=== PATIENT | female | born 1925 | race Caucasian/White ===

== ENCOUNTER 2016-11-22 13:56 | Inpatient (IN) | payer MEDICARE ==
[~2016-11-22] VITALS: Ht 167.6 cm; Wt 70.1 kg
[2016-11-22 13:56] VITALS: BP 112/89; PULSE 112; RESP 14; O2SAT 100
--- NOTE | 2016-11-22 14:26 | ED.REPORT ---
HPI-Chest Pain 40 and Over Date of Service Nov 22, 2016 ED Provider: Dr. Crum The pt is an 89 y/o female with a hx of HTN who presents to the ED from urgent care due to A-fib with RVR as noted at the clinic today. The pt initially went to urgent care complaining of right knee pain. The pt states she was beginning to feel tired while grocery shopping when she suddenly experienced leg weakness and slumped to the floor, landing on her right knee. As per the pt's friend, she had glassy eyes and did not respond to her questions while sitting on the floor. Nursing Notes Stated Complaint: RAPID HEART RATE Nursing Notes Reviewed: Yes Allergies: Coded Allergies: No Known Allergies (Unverified , 11/22/16) General Time Seen by MD: 14:26 Chief Complaint Other (A-fib with RVR) Hx Obtained From: Patient Arrived By: Ambulance Sudden in Onset?: Yes Onset Occurred: Just prior to arrival Symptom Duration: Since onset Quality: Painful (right knee) Radiation: : Does not radiate Severity: Current: Severe Severity: Maximum: Severe Recent Healthcare: No recent doctor visit Past Medical History Past Medical History Reports: Hypertension Past Surgical History Lives in [place] Smoking History Unknown if Ever Smoker Social History Other Social History: Good social support Ambulatory Status Independent Review of Systems Reports: A-fib with RVR Reports: unable to answer questions for a few minutes Reports: glassy eyes Constitutional: Reports: Fatigue Musculoskeletal: Reports: Joint pain (right knee pain) Complete sys rev & neg: except as marked. Physical Exam Initial Vital Signs Vital Signs (First) Date Time Temp Pulse Resp B/P Pulse Ox O2 Delivery O2 Flow Rate FiO2 11/22/16 13:56 35.9 112 14 112/89 100 Room Air Initial VS: Reviewed Head / Eyes: Atraumatic, Normocephalic Neck: Supple, Non-tender, Full range of motion Skin: Warm, Dry, No cyanosis Neurologic: Alert, Oriented, Nonfocal General/Constitutional: Awake, Alert, No acute distress, Well appearing, Cooperative Respiratory / Chest: Atraumatic, Breath sounds NL, Breath sounds = bilat, No respiratory distress, No rales, No rhonchi, No wheezing Cardiovascular: Heart rate NL, Heart sounds NL, No gallop, No murmurs, No rubs Heart Rate / Rhythm: Positive: Irreg irregular rhythm Abdomen: Atraumatic, Soft, Non-tender, No guarding, No rebound Lower Extremity / Pelvis / MS: Atraumatic, Full range of motion, No deformity, Neurologic intact, Vascular intact Extreme pain with minimal movement of right knee. Upper Extremity / MS: Atraumatic, Full range of motion, No swelling, Non-tender , No erythema, No deformity, Neurologic intact, Vascular intact Interpretation & Diagnostics Lab Results Interpretation Result Diagram: 11/22/16 1550 11/22/16 1550 Test 11/22/16 15:50 11/22/16 17:33 White Blood Count 13.3th/mm3 (3.8-10.1) Red Blood Count 4.54mil/mm3 (3.90-5.20) Hemoglobin 14.1g/dL (12.0-15.6) Hematocrit 41.3% (35.0-46.0) Mean Corpuscular Volume 91.0fL (81-100) Mean Corpuscular Hemoglobin 31.1pg (27.0-35.0) Mean Corpuscular Hemoglobin Concent 34.1% (32.0-37.0) Red Cell Distribution Width 13.7% (12.3-15.4) Platelet Count 212bil/L (150-400) Neutrophils (%) (Auto) 84.0% (40-74) Lymphocytes (%) (Auto) 8.7% (14-46) Monocytes (%) (Auto) 6.4% (4-12) Eosinophils (%) (Auto) 0.2% (0-5) Basophils (%) (Auto) 0.2% (0-3) Sodium Level 137mEq/L (134-144) Potassium Level 4.4mEq/L (3.5-5.2) Chloride Level 97mEq/L (97-108) Carbon Dioxide Level 26mmol/L (18-29) Blood Urea Nitrogen 23mg/dL (8-27) Creatinine 0.77mg/dL (0.57-1.00) Estimat Glomerular Filtration Rate 101mL/min (>59) Glucose Level 112mg/dL (60-99) Calcium Level 9.7mg/dL (8.5-10.1) Magnesium Level 2.0mg/dL (1.6-2.6) Total Bilirubin 0.5mg/dL (0.0-1.2) Aspartate Amino Transf (AST/SGOT) 20U/L (0-50) Alanine Aminotransferase (ALT/SGPT) 13U/L (0-32) Alkaline Phosphatase 68U/L (25-165) Troponin T < 0.010ug/L (0.0-0.011) Total Protein 6.9g/dL (6.4-8.4) Albumin 4.2g/dL (3.4-5.0) Hold Edwards Top Tube Received (Received) ECG Interpretation ECG Interpretation: A-fib. Rate 108 Time: 14:09 Interpreted by: ED physician X-Ray Chest Interpretation Chest Xray Interpretation: IMPRESSION: No acute cardiopulmonary disease. Dictated by: Yamilet Kaufman M.D. on 11/22/2016 at 15:11 Approved by: Yamilet Kaufman M.D. on 11/22/2016 at 15:11 View: Portable, 1 view X-Ray Interpretation Xray Interpretation: IMPRESSION: 1. No definitive fractures. 2. Small knee joint effusion. 3. Because of severe degenerative joint disease and generalized osteopenia, subtle fractures could be missed on radiograph. If clinical symptoms persist or clinical suspicion for pathology is high, a repeat examination in 7-10 days, or advanced imaging such as CT or MRI is suggested for further evaluation. Dictated by: Yamilet Kaufman M.D. on 11/22/2016 at 15:09 Approved by: Yamilet Kaufman M.D. on 11/22/2016 at 15:11 X-Ray Ordered: Knee right Interpretation / Wet Read by: Interpret - Radiologist Re-Eval/Medical Decision Source of Hx: Old records Time of Eval: 16:59 Re-Evaluation/Progress Note: Rechecked pt. Discussed lab results, imaging results,diagnosis and plan to admit. Pt understands and agrees with the plan for admission. All questions addressed. Consultation : Referral / Consult Name: Fredy Matos MD Consulted With: Hospitalist Telegraph Lineman: Will see patient, Agrees with eval, Agrees with plan, Accepts admit Counseled Regarding: Diagnosis, Lab results, Need for admission Discharge & Departure Primary Impression: Atrial fibrillation with RVR Additional Impression: Syncope Syncope type: unspecified Qualified Code: R55 - Syncope and collapse Disposition: ADMITTED TO HOSPITAL Scribe Attestation Portions of this note were transcribed by Ngozi Velasquez. I,, personally performed the history,physical exam and medical decision-making;I reviewed and confirmed the accuracy of the information in the transcribed note. Signed by Paloma Wilson. 11/22/16 Bertrand Crum MD Nov 22, 2016 14:26 Ngozi Velasquez Nov 22, 2016 14:28
--- NOTE | 2016-11-22 15:13 | DRSVH ---
PROCEDURE: X-RAY RIGHT KNEE, THREE VIEWS ([id number]) INDICATIONS: syncope TECHNIQUE: 3 views of the knee were acquired. COMPARISON: None. FINDINGS: Bones: No fractures or dislocations. No suspicious bony lesions. There is severe myxoid degenerati on. Generalized osteopenia is noted. Soft tissues: Small joint effusion. No suspicious soft tissue calcifications. IMPRESSION: 1. No definitive fractures. 2. Small knee joint effusion. 3. Because of severe degenerative joint disease and generalized osteopenia, subtle fractures could be missed on radiograph. If clinical symptoms persist or clinical suspicion for pathology is high, a r epeat examination in 7-10 days, or advanced imaging such as CT or MRI is suggested for further evalua tion. Dictated by: Yamilet Kaufman M.D. on 11/22/2016 at 15:09 Approved by: Yamilet Kaufman M.D. on 11/22/2016 at 15:11
--- NOTE | 2016-11-22 15:14 | DRSVH ---
PROCEDURE: X-RAY CHEST ONE VIEW, PORTABLE ([id number]) INDICATIONS: syncope TECHNIQUE: One view of the chest was acquired. COMPARISON: None. FINDINGS: Surgical changes and devices: None. Lungs and pleura: No pleural effusions or pneumothorax. Lungs are clear. Mediastinum: Mediastinal contours appear normal. Heart size is normal. Bones and chest wall: No suspicious bony lesions. Overlying soft tissues appear unremarkable. IMPRESSION: No acute cardiopulmonary disease. Dictated by: Yamilet Kaufman M.D. on 11/22/2016 at 15:11 Approved by: Yamilet Kaufman M.D. on 11/22/2016 at 15:11
[2016-11-22 15:30] VITALS: BP 102/60; PULSE 103; RESP 21; O2SAT 98
[2016-11-22 16:02] LABS: BASOPHILS % (AUTO) 0.2 % (0-3); EOSINOPHILS % (AUTO) 0.2 % (0-5); MONOCYTES % (AUTO) 6.4 % (4-12); Mean Corpuscular Hemoglobin 31.1 pg (27.0-35.0); Platelet Count 212 bil/L (150-400)
[2016-11-22 16:25] VITALS: BP 113/81; PULSE 101; RESP 23; O2SAT 99
[2016-11-22 16:26] VITALS: BP 113/74; PULSE 103; RESP 21; O2SAT 99
[2016-11-22 16:29] LABS: TROPONIN T < 0.010 ug/L (0.0-0.011)
[2016-11-22] MEDS ORDERED: Ondansetron 2 mg/mL 2 mL Inj IVPUSH PRN ×2 (18:00→20:20)
[2016-11-22] MEDS ORDERED: Alum-Mag Hydrox-Simeth 30 mL Suspension PO PRN ×2 (18:00→20:20)
[2016-11-22 18:32] VITALS: BP 91/63; PULSE 103; RESP 18; O2SAT 100
[2016-11-22 18:45] LABS: APPEARANCE,URINE HAZY (CLEAR,HAZY); COLOR,URINE YELLOW (YELLOW)
[2016-11-22 18:46] LABS: OCCULT BLOOD,URINE NEGATIVE (NEGATIVE); PH,URINE 5.5 (5.0-8.0)
[2016-11-22 18:52] VITALS: BP 119/62; PULSE 67; RESP 18; O2SAT 94
--- NOTE | 2016-11-22 18:57 | NUR ---
Transfer to [facility] Patient arrived via stretcher from ED at 1845. Currently getting settled by CNA. OCAMPO, stated she's hungry and wants to eat, dinner tray in the room. Admit not yet completed, report given to oncoming JAZMYNE GARCIA.
--- NOTE | 2016-11-22 20:03 | PCM.HPMED ---
Subjective Date of Service Nov 22, 2016 Primary Provider: Admitting Physician: Elvin Jimenez MD Primary Care Physician: Eleonora Attending Physician: Elvin Jimenez MD Admit Status: From the Emergency Department Chief Complaint: syncope History of Present Illness: 89yoF with past medical history of HTN admitted after a syncopal event found to be in atrial fibrillation with RVR. Patient states that she was out shopping with her sister when she "went blank" . Her sister tried to speak to her but she wasn't responding. She caught her before she fell and gradually helped her to the floor. Medics were called and patient was transported to [facility] for further evaluation. Upon arrival EKG was completed and found that patient was in new onset atrial fibrillation. When Mrs. Gracia was lowered to the ground she hurt her right knee and endorses ongoing knee pain. XR imaging in the ED reveal no fracture. Review of Systems: complete review of systems obtained. positive as per hpi otherwise negative Allergies Coded Allergies: No Known Allergies (Unverified , 11/22/16) Home Medications Ramipril Aspirin Calcium Clobetasol topical Furosemide Amlodipine Metoprolol Tramadol Vitamin C PMH HTN Family History patient unable to recall family history Social History Occupation: retired Hx Alcohol Use: Yes (OCCASSIONALLY) Hx Substance Use: No Smoking Status: Unknown if Ever Smoker Living Arrangement: Alone (lives in [place] with stepdaughter nextdoor ) Exam Vital Signs Vital Sign - Last Date Time Temp Pulse Resp B/P Pulse Ox O2 Delivery O2 Flow Rate FiO2 11/22/16 18:52 36.4 67 18 119/62 94 Room Air Exam General: Alert, Oriented X3, Cooperative, Moderate Distress due to pain Eyes: PERRLA, Scleral Anicteric Mouth: Mouth Normal, Mucous Membranes Moist/[place] Neck: Supple, no Thyromegaly, trachea central. Chest & Lungs: Clear to auscultation & percussion, No adventitious breath sounds, no crackles, no wheeze Cardiovascular: irregularly irregular, no murmur Pulses: Radial (present and equal), Dorsalis Pedi (present and equal) Abdomen: Soft,Non-tender, Non-distended, Normoactive bowel tones. Musculoskeletal: Normal range of motion, right knee with mild edema and tenderness to palpation Extremities: 0-1+ edema, no cyanosis, no clubbing. Skin: No rashes. Warm and dry, no erythematous areas Neurological: Grossly neurologically intact, Normal Speech, Sensation Intact Lymphatic: Lymph nodes Cervical and Axillary not palpable. Lab and Diagnostics Result Diagram: 11/22/16 1550 11/22/16 1550 X-Rays, CTs and MRIs Patient Name: PABLO GRACIA MR#: [id number] Location: SED Ordering Phys: Bertrand Crum MD Date of Service: 11/22/16 1430 PROCEDURE: X-RAY CHEST ONE VIEW, PORTABLE ([id number]) INDICATIONS: syncope TECHNIQUE: One view of the chest was acquired. COMPARISON: None. FINDINGS: Surgical changes and devices: None. Lungs and pleura: No pleural effusions or pneumothorax. Lungs are clear. Mediastinum: Mediastinal contours appear normal. Heart size is normal. Bones and chest wall: No suspicious bony lesions. Overlying soft tissues appear unremarkable. IMPRESSION: No acute cardiopulmonary disease. Dictated by: Yamilet Kaufman M.D. on 11/22/2016 at 15:11 Approved by: Yamilet Kaufman M.D. on 11/22/2016 at 15:11 Patient Name: PABLO GRACIA MR#: [id number] Location: SED Ordering Phys: Bertrand Crum MD Date of Service: 11/22/16 1430 PROCEDURE: X-RAY RIGHT KNEE, THREE VIEWS ([id number]) INDICATIONS: syncope TECHNIQUE: 3 views of the knee were acquired. COMPARISON: None. FINDINGS: Bones: No fractures or dislocations. No suspicious bony lesions. 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 Generalized osteopenia is noted. Soft tissues: Small joint effusion. No suspicious soft tissue calcifications. IMPRESSION: 1. No definitive fractures. 2. Small knee joint effusion. 3. Because of severe degenerative joint disease and generalized osteopenia, subtle fractures could be missed on radiograph. If clinical symptoms persist or clinical suspicion for pathology is high, a repeat examination in 7-10 days, or advanced imaging such as CT or MRI is suggested for further evaluation. Dictated by: Yamilet Kaufman M.D. on 11/22/2016 at 15:09 Approved by: Yamilet Kaufman M.D. on 11/22/2016 at 15:11 Assessment & Plan 89yoF with past medical history of HTN admitted after a syncopal event found to be in atrial fibrillation with RVR. Syncope, acute, POA -most likely secondary to atrial fibrillation with RVR -patient improved following admission however remains in atrial fibrillation HR 60-100 New onset atrial fibrillation, acute, POA -no past history of cardiac disease -history of HTN -will continue home HTN medications including metoprolol -ECHO ordred for am -AM team to discuss the risk benefits of anticoagulation in a 89yo with difficulties ambulating and fall risk Knee pain, acute, POA -2/2 syncopal event -XR to acute fracture however osteoarthritis noted -continue home tramadol -PT in am HTN, chronic, POA -continue home medications including LORELEI, amlodipine, metoprolol, and furosemide Pain Evaluation: Adequate Pain Control GI Prophylaxis: Not indicated VTE Prophylaxis: Sub-Q Heparin (Unfractionated) Resuscitation Status: CPR: Attempt Resuscitation Natalie Brewster DO Nov 22, 2016 20:03
[2016-11-22] MEDS ORDERED: Polyethylene Glycol (PEG) 17 Gm Powder PO PRN (20:20)
[2016-11-23] VITALS (8 sets, daily range): BP systolic 97–112; BP diastolic 62–73; PULSE 67–110; RESP 18–21; O2SAT 98–99
--- NOTE | 2016-11-23 06:42 | NUR ---
Admit/Cardiac/Pain Patient remained bedrest through night to avoid any more syncopal episodes. Currently Afib 90s-110s. C/o R leg pain, xray of knee done, patient c/o leg pain distal to knee. Tylenol given x2 doses. Plan for P.T. eval this AM. Patient willing to "go somewhere" to get better if she can't go home independently when discharged. Discuss anticoagulation vs risk of bleeding for patient.
[2016-11-23] MEDS: MeTOProlol XL 50 mg ER24 Tablet PO SCH (08:12)
[2016-11-23] MEDS: Heparin 5,000 Unit/mL Inj SUBQ SCH ×2 (08:12→15:57)
[2016-11-23] MEDS ORDERED: CALC600T12 PO (09:31)
[2016-11-23] MEDS ORDERED: ASPI-973 PO (09:31)
[2016-11-23] MEDS ORDERED: RAMI5CAP19 PO (09:31)
[2016-11-23] MEDS ORDERED: NAPR220C11 PO (09:33)
[2016-11-23] MEDS ORDERED: FURO-128 PO (10:13)
[2016-11-23] MEDS ORDERED: AMLO10TA3 PO (10:13)
[2016-11-23] MEDS ORDERED: VIT1CAPS10 PO (10:13)
[2016-11-23] MEDS ORDERED: TRAM50TA2 PO (10:16)
[2016-11-23] MEDS ORDERED: METO-369 PO (10:16)
[2016-11-23] MEDS ORDERED: ASCO-294 PO (10:16)
[2016-11-23] MEDS ORDERED: POTA10CA42 PO (10:16)
[2016-11-23] MEDS ORDERED: CHOL200047 PO (10:18)
[2016-11-23] MEDS ORDERED: LUTE20TA PO (10:18)
[2016-11-23] MEDS ORDERED: ZINC50TA4 PO (10:18)
--- NOTE | 2016-11-23 11:35 | NUR ---
Social Work-initial assessment/bedside rounds: Data:See initial assessment. Pt is a 89 y/o female who was admitted on 11/22/16 for AFIB per H&P. Pt's insurance is [facility] and PCP is Dr. Leonardo in [place]. EMR Reviewed. Pt's readmission score is 2. SW met with pt and sister Diana at bedside, SW role explained. Pt is alert and oriented x3. Pt resides at home alone where she remains independent with ADLS. Pt drives occasionally and does use a cane. Pt has no HH or SNF history. Pt has no terminal carman care insurance or VA benefits. SW discussed DPOA/ advanced directive, pt has completed this, SW encouraged a copy to be brought in. SW provided pt with a discharge planning checklist and encouraged with any questions, phone number provided on white board in room. PT saw pt and is recommending SNF, no MD orders at this time. SW to follow up with pt and sister when order received. SW will continue to follow. Assessment:Pt who is independent at baseline. Plan:PT saw pt and is recommending SNF, no MD orders at this time. SW to follow up with pt and sister when order received. SW will continue to follow. MAGDY Holt Addendum: 11/23/16 at 1138 by DARCY HOLLOWAY Amended: Links added. Addendum: 11/23/16 at 1634 by DARCY TYSON PT's family brought in information regarding supplemental insurance, which MARGARET faxed to admitting. DPOA/advanced directive paperwork brought in which MARGARET placed a copy of in the chart. Daughter Abbie John contact information [phone]. MAGDY Holt
--- NOTE | 2016-11-23 13:41 | DRSVH ---
PROCEDURE: CT BRAIN WITHOUT CONTRAST ([id number]) INDICATIONS: 89-year-old woman with syncope. TECHNIQUE: Noncontrast 4.5 mm thick angled axial sections acquired from the foramen magnum to the vertex, with c oronal reformats. COMPARISON: None. FINDINGS: Image quality: Excellent. CSF spaces: Basal cisterns are patent. No extra-axial fluid collections. The ventricles are symmet sinai in size and shape. Brain: No intracranial bleeds or masses. There is moderate cerebral volume loss for age, with resul tant ventricular and sulcal prominence. There are moderate periventricular and deep white matter chr onic small vessel ischemic changes. There is intracranial internal carotid artery atherosclerosis. Skull and face: Calvarium and visualized facial bones appear intact, without suspicious lesions. Mi ld thickening of the left maxillary sinus wall. Sinuses: Visualized sinuses and mastoids are clear. IMPRESSION: 1. No acute intracranial abnormalities. 2. Cerebral volume loss and chronic microvascular ischemic changes. 3. Mild left maxillary sinus wall thickening maybe sequelae of chronic sinusitis. Dictated by: Yamilet Kaufman M.D. on 11/23/2016 at 13:35 Approved by: Yamilet Kaufman M.D. on 11/23/2016 at 13:39
--- NOTE | 2016-11-23 13:44 | DRSVH ---
PROCEDURE: MRI KNEE RIGHT WITHOUT CONTRAST ([id number]) INDICATIONS: Right knee pain and swelling TECHNIQUE: Noncontrast sagittal PD fast spin echo and T2 fast spin echo with fat saturation, sagittal 3-D FLASH with fat saturation; coronal T1 spin echo and PD fast spin echo with fat saturation, and axial PD fas t spin echo with fat saturation through the knee. COMPARISON: [facility], CR, XR KNEE 3VW RT, 11/22/2016, 14:48. FINDINGS: Image quality: Diagnostic. Bones and joint: An obliquely oriented fracture is evident involving the medial femoral condyle, whic h extends into the anterior aspect of the femoral notch. Mild displacement of the fracture is eviden t. No definite additional fractures are appreciated. No suspicious osseous lesions are present. Th ere is a large knee joint effusion with an associated prominent Warner cyst. Moderate to severe trico mpartmental degenerative changes of the knee are present demonstrating extensive chondromalacia, lucinda ical surface irregularity, and prominent marginal osteophytes. These findings are more prominent wit hin the medial and lateral tibiofemoral compartments. Cruciate ligaments: The cruciate ligaments are not well seen. A chronic full-thickness tear of the a nterior cruciate ligament is present. There is increased signal the posterior cruciate ligament whic h is somewhat thinned, which a represent ligamentous degeneration. Menisci: Extensive maceration of the medial meniscus is present. No normal medial meniscal tissue is identified. There also is extensive tearing of the lateral meniscus with partial tearing involving the antrum root of the lateral meniscus. There probably is complete posterior root avulsion of the l ateral meniscus. Medial structures: The medial collateral ligament is intact. The semimembranosus tendon insertion is intact. The imaged portions of the pes anserinus tendons are unremarkable. No significant fluid is contained within the pes anserinus bursa. Lateral structures: The popliteal tendon is intact. The lateral collateral ligament proper (fibular collateral ligament) and the proximal tibiofibular ligaments are intact. Mild increased signal invo lving the femoral attachment of the lateral collateral ligament may be related to normal ligamentous splaying. A low-grade sprain may have this appearance. The distal aspect of the biceps femoris tendo n and the iliotibial band are intact. Anterior structures: The quadriceps and patellar tendons are intact. There is edema in the infrapate llar fat pad. IMPRESSION: 1. Mildly displaced oblique fracture involving the medial femoral condyle that extends into the femo ral notch. 2. Chronic anterior cruciate ligament full-thickness tear. Partial tearing of the posterior cruciat e ligament versus chronic ligamentous degeneration is also present. 3. Extensive degenerative tearing of the medial meniscus. No normal medial meniscal tissue is evide nt. 4. Posterior root avulsion of the lateral meniscus likely is chronic. 5. Moderate knee joint effusion with an associated Warner's cyst. Scattered intra-articular joint miranda dies probably are present. 6. Lateral collateral ligament sprain. 7. Advanced degenerative changes of the right knee. Dictated by: Arnoldo Christiansen M.D. on 11/23/2016 at 12:28 Approved by: Arnoldo Christiansen M.D. on 11/23/2016 at 12:42
[2016-11-23] MEDS ORDERED: 0.9% Sodium Chloride 250 ML ONE (14:20)
[2016-11-23] MEDS: cefTRIAXone Inj 1,000 MG in Dextrose 5% Minibag Plus 50 ML IV SCH (14:29)
--- NOTE | 2016-11-23 15:35 | NUR ---
CT AND MRI Notified Dr. Lozano r/t CT and MRI knee results. Called back and aware.
--- NOTE | 2016-11-23 15:44 | NUR ---
Mentation patient is alert and oriented x3. Able to make needs known. hearing aids present both ears. daughter at bed side. CT and MRI done, Dr. Lozano aware. patient worked with PT this morning and continue bed rest until surgery sees her per Dr. Lozano. bed bustamante use due to bed rest. c/o pain to right knee with movement, PRN Tylenol given once this shift with effective results. per patient if i do not move right knee there is no pain. Dr. Lozano at bed side speaking to patient r/t MRI results. Stable vital signs, Tele Afib 98. uses call light appropriately. stable mood. continue to monitor.
--- NOTE | 2016-11-23 16:01 | NUR ---
New orders new orders for CT knee and diet NPO. Ortho will see patient and patient aware.
--- NOTE | 2016-11-23 16:18 | PCM.PNMED ---
Subjective Date of Service Nov 23, 2016 Subjective She has a lot of knee pain as well as swelling. She denies any palpitations, dizziness or shortness of breath. She has chronic right shoulder pain. No difficulty speaking. She denies any confusion or further episodes of feeling lightheaded or confused. No critical overnight events noted. Exam Vital Signs Vital Sign - Last Date Time Temp Pulse Resp B/P Pulse Ox O2 Delivery O2 Flow Rate FiO2 11/23/16 13:26 36.6 104 18 107/73 98 Room Air Intake and Output 11/22/16 11/22/16 11/23/16 Cumulative From/Thru 15:00 23:00 07:00 11/22/16 13:56 - 11/23/16 06:05 Intake Total 473 ml 473 ml Output Total 475 ml 475 ml Balance -2 ml -2 ml Intake Oral 473 ml 473 ml Output Urine Total 475 ml 475 ml Exam Alert and oriented 3, no distress. She has fluent speech. Anicteric sclera, symmetric pupils No facial droop. There is normal effort Heart is irregular. Abdomen is soft and nontender. Extremities are free of edema. Right knee is swollen and tender and pain increases with direct pressure or any movement of the knee. IVs and Medications Medications Reviewed: Medications were reviewed in detail Lab and Diagnostics Result Diagram: 11/22/16 1550 11/22/16 1550 X-Rays, CTs and MRIs Patient Name: PABLO AMADOR MR#: [id number] [place] [facility] [place] Phys: Bertrand Crum MD Date of Service: 11/22/16 1430 PROCEDURE: X-RAY CHEST ONE VIEW, PORTABLE ([id number]) INDICATIONS: syncope TECHNIQUE: One view of the chest was acquired. COMPARISON: None. FINDINGS: Surgical changes and devices: None. Lungs and pleura: No pleural effusions or pneumothorax. Lungs are clear. Mediastinum: Mediastinal contours appear normal. Heart size is normal. Bones and chest wall: No suspicious bony lesions. Overlying soft tissues appear unremarkable. IMPRESSION: No acute cardiopulmonary disease. Dictated by: Yamilet Kaufman M.D. on 11/22/2016 at 15:11 Approved by: Yamilet Kaufman M.D. on 11/22/2016 at 15:11 Patient Name: PABLO AMADOR MR#: [id number] [place] [facility] [place] Phys: Bertrand Crum MD Date of Service: 11/22/16 1430 PROCEDURE: X-RAY RIGHT KNEE, THREE VIEWS ([id number]) INDICATIONS: syncope TECHNIQUE: 3 views of the knee were acquired. COMPARISON: None. FINDINGS: Bones: No fractures or dislocations. No suspicious bony lesions. 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 Generalized osteopenia is noted. Soft tissues: Small joint effusion. No suspicious soft tissue calcifications. IMPRESSION: 1. No definitive fractures. 2. Small knee joint effusion. 3. Because of severe degenerative joint disease and generalized osteopenia, subtle fractures could be missed on radiograph. If clinical symptoms persist or clinical suspicion for pathology is high, a repeat examination in 7-10 days, or advanced imaging such as CT or MRI is suggested for further evaluation. Dictated by: Yamilet Kaufman M.D. on 11/22/2016 at 15:09 Approved by: Yamilet Kaufman M.D. on 11/22/2016 at 15:11 Assessment & Plan 89yoF with past medical history of HTN admitted after a syncopal event found to be in atrial fibrillation with RVR. #. Syncope, acute, and on admission and stable. -most likely secondary to atrial fibrillation with RVR -patient improved following admission however remains in atrial fibrillation HR 60-100 We'll continue to follow her on telemetry and see if she has any other episodes of syncope or near syncope. We'll also follow her blood pressures and check for orthostasis. Her CT of the head to rule out occult infarct. #. Right knee pain and swelling, present on admission and active. -MRI of knee to rule out tibial plateau fracture or other derangement. #. Possible New onset atrial fibrillation, presented on admission and active. -no past history of cardiac disease -history of HTN -will continue home HTN medications including metoprolol -ECHO ordred for am, results pending -We'll hold on anticoagulation at this point until we further sort out what's going on with the knee and were that may lead us. #. Essential hypertension, presented on admission and stable -continue home medications including LORELEI, amlodipine, metoprolol, and furosemide We'll change her from observation to inpatient status given that she has severe knee pain and will require imaging and likely orthopedic referral and intervention. GI Prophylaxis: Not indicated VTE Prophylaxis: Sub-Q Heparin (Unfractionated) Resuscitation Status: CPR: Attempt Resuscitation Javier Lozano MD Nov 23, 2016 16:18
--- NOTE | 2016-11-23 17:30 | NUR ---
Case Management: COS completed to Inpatient. IMM explained to patient and daughter Alisa at 1700, all questions answered. Signed copy placed in chart, copy given to Alisa. Mimi Wray RN
--- NOTE | 2016-11-23 17:43 | DRSVH ---
PROCEDURE: CT KNEE RIGHT W/O CONTRAST ([id number]) INDICATIONS: 89 year-old female with oblique intra-articular fracture of the medial femoral condyle o n recent MRI. TECHNIQUE: Noncontrast 1-1.5 mm axial sections acquired from the mid-patella to the proximal tibia, with coronal and sagittal reformats. COMPARISON: [facility], MR, MR KNEE RT WO CON, 11/23/2016, 12:52. [facility] , CR, XR KNEE 3VW RT, 11/22/2016, 14:48. FINDINGS: Image quality: Excellent. Bones: Mildly displaced oblique fracture again is noted, extending from the medial femoral metaphysis into the distal femoral notch. There is background of severe tricompartmental knee joint degeneratio n, with prominent peripheral osteophyte formation. No suspicious lytic or blastic bony lesions. Soft tissues: On coronal image 57, 4 mm calcified intra-articular body lies near the tibial spine. Th ere is small knee joint effusion. Quadriceps and patellar tendons appear intact. Other ligaments and tendons are not well visualized on CT scan. IMPRESSION: 1. Mildly displaced intra-articular fracture of the medial femoral condyle is again noted, extending from the medial distal femoral metaphysis into the distal femoral notch. 2. Background severe tricompartmental knee joint degeneration as before, with 4 mm calcified central intra-articular body. Dictated by: Tiago Gerardo M.D. on 11/23/2016 at 17:35 Approved by: Tiago Gerardo M.D. on 11/23/2016 at 17:41
--- NOTE | 2016-11-23 23:25 | CONS ---
[address] [address] CONSULTATION REPORT PATIENT: PABLO AMADOR : 1925 MR#: [id number] ADMIT: 11/22/2016 JOB ID: [id number] DATE OF SERVICE: 11/23/2016 CHIEF COMPLAINT: Right knee pain. HISTORY OF PRESENT ILLNESS: This is a pleasant 89-year-old female that presented to the hospital yesterday. She was at the grocery store with her sister when he got dizzy and was noted by her sister that she was holding onto the grocery cart and slid down to the ground. At that time, her legs were crumpled up in appearance, she was unable to further ambulate, and was brought to the hospital. Her sister states she was confused the whole time. On presentation, she was diagnosed with syncope and admitted for further evaluation and workup. Her knee continued to be painful. Radiographs were obtained and noted to not demonstrate any fractures at that time. As the patient continued to have swelling, pain and limited motion to the knee, an MRI was ordered that did identify a fracture to the distal femur. Orthopedics was thus consulted for further evaluation and treatment. Patient complains of only right knee pain. She states she has never had any issue previously of any dizziness like she had today. She has never had any issues either with her heart. She normally ambulates utilizing a cane and her daughter who is present, who is the power of employment attorney, states that she also has a walker that she is supposed to use but does not use. She currently lives at home by herself, but has a stepdaughter who lives next door that checks up on her every once in a while. PAST MEDICAL HISTORY: Hypertension, new onset atrial fibrillation. PAST SURGICAL HISTORY: Hysterectomy and tonsillectomy. FAMILY HISTORY: Noncontributory. SOCIAL HISTORY: The patient lives at home by herself with a stepdaughter that lives next door to her. Her daughter is the power of employment attorney who is present today during the examination and discussion. MEDICATIONS: Please see electronic medical record for full list of patient's medications. ALLERGIES: No known drug allergies. REVIEW OF SYSTEMS: The patient denies any fevers, sweats, chills, chest pain, shortness of breath nausea, vomiting, diarrhea. Complains mainly of right knee pain as described in history of present illness. PHYSICAL EXAMINATION: General: The patient is alert, oriented, in no apparent distress. HEENT: Normocephalic, atraumatic. Extraocular movements intact. Nares patent. Lungs: No audible wheezes. No overt signs of respiratory distress. Neuro: Cranial nerves 2-12 intact. Extremities: Gross observation of the patient's right knee reveals a moderate amount of swelling. She demonstrates tenderness to palpation diffusely about the knee, but most prevalent along the medial aspect of the knee to the distal femur. She has palpable dorsalis pedis and posterior tib pulses. Complete intact sensation in the right lower extremity. She is able to dorsiflex and plantar flex the ankle without difficulty. Any knee range of motion creates significant pain. DIAGNOSTIC STUDIES: Three views of the patient's right knee were obtained upon presentation to the emergency department, and demonstrate a unicondylar medial femoral condyle fracture. 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 MRI of the right knee, as well as CT, confirm the above findings. IMPRESSION: Right distal femur unicondylar medial condyle fracture. PLAN: Discussed with the patient, as well as her daughter who is the power of employment attorney, the risks, benefits, alternatives and indications to proceed with open reduction, internal fixation of the right distal femur fracture. They understood the risks include, but not limited to, neurovascular injury, tendon injury, infection, failure of fixation, stiffness, persistent pain, all of which may require further intervention. The patient had all questions answered, as well as her daughter. I did discuss with them the nonoperative treatment option with immobilization, but will likely lead to significant stiffness of the knee as she already has significant underlying osteoarthritis. They understand that it will heal in this position whether we do surgery or not, but due to the prolonged immobilization without surgery it is likely she will have significant stiffness. They have had all questions answered and consent was signed and placed in the chart. The plan is to have the patient n.p.o. at midnight, with the plan to proceed with surgery tomorrow late afternoon to evening. A knee immobilizer will be placed now for the patient. Postop, she will be in a knee immobilizer and will be nonweightbearing to the right lower extremity for likely 8 weeks. She will be converted to a hinged knee brace at the first post op in 2 weeks and start knee range of motion. MTDD
[2016-11-24] VITALS (15 sets, daily range): BP systolic 99–136; BP diastolic 55–83; PULSE 64–110; RESP 11–20; O2SAT 94–100
[2016-11-24] MEDS: Heparin 5,000 Unit/mL Inj SUBQ SCH ×3 (01:03→22:06)
[2016-11-24] MEDS ORDERED: Propofol 10,000 mCg/mL 20 mL Inj ONE (01:27)
[2016-11-24] MEDS ORDERED: Ketamine 10 mg/mL 20 mL Inj ONE (01:27)
[2016-11-24] MEDS ORDERED: Dexamethasone 4 mg/mL Inj ONE (01:27)
[2016-11-24] MEDS ORDERED: Ondansetron 2 mg/mL 2 mL Inj ONE (01:27)
[2016-11-24] MEDS ORDERED: Phenylephrine/NS 100 mCg/mL 10 mL Syringe IVPUSH ONE (01:27)
[2016-11-24] MEDS ORDERED: fentaNYL-PF 50 mCg/mL 2 mL Inj ONE (01:27)
--- NOTE | 2016-11-24 05:57 | NUR ---
Pain Pt denies pain when at rest but moans when moved. Splint applied, Ultram given x1. orthos WNL.
[2016-11-24] MEDS: MeTOProlol XL 50 mg ER24 Tablet PO SCH (08:13)
--- NOTE | 2016-11-24 12:01 | PCM.PNMED ---
Subjective Date of Service Nov 24, 2016 Subjective She is doing well this morning. No syncope or presyncope symptoms. No palpitations, chest pain or dyspnea. No nausea. She does have right knee pain when moving the leg. She denies any abdominal pain. No critical overnight events noted. Exam Vital Signs Vital Sign - Last Date Time Temp Pulse Resp B/P Pulse Ox O2 Delivery O2 Flow Rate FiO2 11/24/16 09:26 36.6 104 18 103/73 98 Room Air Intake and Output 11/23/16 11/23/16 11/24/16 Cumulative From/Thru 15:00 23:00 07:00 11/22/16 13:56 - 11/24/16 05:41 Intake Total 340 ml 0 ml 813 ml Output Total 850 ml 400 ml 1725 ml Balance -510 ml -400 ml -912 ml Intake Oral 240 ml 0 ml 713 ml IV Total 100 ml 100 ml Output Urine Total 850 ml 400 ml 1725 ml Exam Alert and Oriented, no distress. Fluent speech. Normal skull Anicteric sclera No facial droop Lungs are clear with normal rate effort Heart is irregular without murmur, or gallop Abdomen is soft, nondistended and nontender Extremities free of edema Right knee is swollen and tender to palpation or with any movement. IVs and Medications Medications Reviewed: Medications were reviewed in detail Lab and Diagnostics Result Diagram: 11/22/16 1550 11/22/16 1550 X-Rays, CTs and MRIs Patient Name: PABLO AMADOR MR#: [id number] [place] [facility] [place] Ordering Phys: Bertrand Crum MD Date of Service: 11/22/16 1430 PROCEDURE: X-RAY CHEST ONE VIEW, PORTABLE ([id number]) INDICATIONS: syncope TECHNIQUE: One view of the chest was acquired. COMPARISON: None. FINDINGS: Surgical changes and devices: None. Lungs and pleura: No pleural effusions or pneumothorax. Lungs are clear. Mediastinum: Mediastinal contours appear normal. Heart size is normal. Bones and chest wall: No suspicious bony lesions. Overlying soft tissues appear unremarkable. IMPRESSION: No acute cardiopulmonary disease. Dictated by: Yamilet Kaufman M.D. on 11/22/2016 at 15:11 Approved by: Yamilet Kaufman M.D. on 11/22/2016 at 15:11 Patient Name: PABLO AMADOR MR#: [id number] Location: [facility] [place] Ordering Phys: Bertrand Crum MD Date of Service: 11/22/16 1430 PROCEDURE: X-RAY RIGHT KNEE, THREE VIEWS ([id number]) INDICATIONS: syncope TECHNIQUE: 3 views of the knee were acquired. COMPARISON: None. FINDINGS: Bones: No fractures or dislocations. No suspicious bony lesions. 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 Generalized osteopenia is noted. Soft tissues: Small joint effusion. No suspicious soft tissue calcifications. IMPRESSION: 1. No definitive fractures. 2. Small knee joint effusion. 3. Because of severe degenerative joint disease and generalized osteopenia, subtle fractures could be missed on radiograph. If clinical symptoms persist or clinical suspicion for pathology is high, a repeat examination in 7-10 days, or advanced imaging such as CT or MRI is suggested for further evaluation. Dictated by: Yamilet Kaufman M.D. on 11/22/2016 at 15:09 Approved by: Yamilet Kaufman M.D. on 11/22/2016 at 15:11 Assessment & Plan 89yoF with past medical history of HTN admitted after a syncopal event found to be in atrial fibrillation with RVR. #. Syncope, acute, and on admission and stable. -most likely secondary to atrial fibrillation with RVR -patient improved following admission however remains in atrial fibrillation HR 60-100 We'll continue to follow her on telemetry and see if she has any other episodes of syncope or near syncope. We'll also follow her blood pressures and check for orthostasis. CT of the head was unremarkable. On telemetry overnight she has simply been in atrial fibrillation in the high 90s. No clear episodes of bradycardia or extreme tachycardia. #. Right knee pain and swelling, present on admission and active. She does have a distal femur fracture. She was seen by orthopedics and Dr. tong will take her to the OR today for operative repair of her distal femoral condyle fracture. #. Possible New onset atrial fibrillation, presented on admission and active. This appears to mostly mostly rate controlled. -no past history of cardiac disease -history of HTN -will continue home HTN medications including metoprolol -ECHO ordred for am, results pending as of the morning of November 24. -We'll hold on anticoagulation at this point until we further sort out what's going on with the knee and were that may lead us. #. Essential hypertension, presented on admission and stable -continue home medications including LORELEI, amlodipine, metoprolol, and furosemide #. DVT prophylaxis. We will start her on subcutaneous heparin after her operation today. This is ordered for start time of late afternoon/early evening. We'll change her from observation to inpatient status effective November 23 given that she has severe knee pain and will require imaging and likely orthopedic referral and intervention. GI Prophylaxis: Not indicated VTE Prophylaxis: Sub-Q Heparin (Unfractionated) Resuscitation Status: CPR: Attempt Resuscitation Javier Lozano MD Nov 24, 2016 12:01
[2016-11-24] MEDS: 0.9% Sodium Chloride 1,000 ML IV SCH (12:09)
[2016-11-24] MEDS: cefTRIAXone Inj 1,000 MG in Dextrose 5% Minibag Plus 50 ML IV SCH (14:54)
--- NOTE | 2016-11-24 17:22 | PCM.HPANE ---
Patient Data Surgeon Admitting Provider:Natalie Brewster DO Attending Provider:Javier Lozano MD Primary Care Physician:Olivia Leonardo PA-C Other Provider: Reason for Visit Afib With Rvr, Syncope AFIB WITH RVR, SYNCOPE Ht/WT & BMI Height (Feet): 5 Height (Inches): 6.00 Weight (Kilograms): 68.100 Body Mass Index 24.13 Allergies Coded Allergies: No Known Allergies (Unverified , 11/22/16) Past Anesthesia History Anesthesia History: Denies:: Abnormal Airway, Anesthesia Reactions, Difficult Intubation Diabetes History Hx Diabetes?: No MRSA MRSA: No Medications Hypertension Medication: Yes Home Meds Incl Beta Rebeca: Yes Reported Medications Lutein 20 Mg Jlspen89 Mg PO DAILY 11/23/16 Zinc Gluconate (Zinc)50 Mg Fjarvn71 Mg PO DAILY 11/23/16 Cholecalciferol (Vitamin D3) (Vitamin D3)2,000 Unit Capsule2,000 Unit PO DAILY 11/23/16 Ascorbate Calcium (Vitamin C)500 Mg Iovbnb973 Mg PO DAILY 11/23/16 Metoprolol Succinate ER 50 Mg Tab.er.24h50 Mg PO HS #90 11/23/16 Potassium Chloride 10 Meq Capsule.er10 Meq PO DAILY #90 11/23/16 Amlodipine 10 Mg Yheyyy83 Mg PO HS #90 11/23/16 Furosemide (Lasix)40 Mg Nanbof40 Mg PO DAILY #90 11/23/16 Vit A/Vit C/Vit E/Zinc/Copper (Preservision Areds Softgel)1 Each Capsule1 Each PO BID 11/23/16 Naproxen Sodium (Aleve)220 Mg Boqybhp972 Mg PO DAILY PRN For Pain 11/23/16 Calcium Carbonate (Calcium)600 Mg Mmnmlm654 Mg PO DAILY 11/23/16 Aspirin 81 Mg Pspobc65 Mg PO DAILY Ref 0 11/23/16 Ramipril (Altace)5 Mg Capsule5 Mg PO DAILY 11/23/16 Discontinued Reported Medications Tramadol 50 Mg Pzamup39 Mg PO Q6H PRN For Pain Ref 0 11/23/16 History History of ENT Problems?: Yes HEENT History: Positive for:: Cataracts (bilateral cateract surgery "years ago ") Hx of Heart Problems?: Yes Cardiovascular History: Positive for:: Edema (Knees ) Hypertension Irregular Heartbeat (currently dx new onset Afib) Denies:: Cardiac Surgery Chest Pain Congestive Heart Failure Heart Murmur Pacemaker Thrombophlebitis Other Cardiac History: new Afib Hx of Respiratory Problem?: No Respiratory History: Denies:: Asthma COPD Chest Surgery Dyspnea Emphysema Hemoptysis Pneumonia Tuberculosis Hx Neurologic Problems?: No Neurological History: Denies:: CVA Dementia Dizziness Headaches Seizures Hx of GI Problems?: No Hx of Problems?: No Genitourinary History: Denies:: HX of Hemodialysis Kidney Stones Urinary Tract Infection HX of Peritoneal Dialysis: No Female Hx: Denies:: Currently (Hysterectomy ) Hx Musculoskeletal Problems?: Yes Musculoskeletal History: Positive for:: Musculoskeletal Trauma (R shoulder muscle tear, no treatment for it) Hx of Psycho/Social Problems?: No Hx Surgeries?: Yes (cateract surgery bilateral eyes, hysterectomy) Hx Any Other Health Problems?: No Other History: Positive for:: Hospitalization Denies:: Cancer Thyroid Disease History Blood Transfusions: Positive for:: Accept Blood Products? Denies:: Blood Transfusions Hx Diabetes: No Occupation: retired Hx Alcohol Use: Yes ("rare")Hx Substance Use: No Smoking Status: Unknown if Ever Smoker Stop/Bang Treated for Sleep Apnea?: No Do You Have a CPAP Machine?: No TAHIR Risk Assessment: Low Risk, <3 Yes Risk Assessment Category Category 1A: Patient has history of documented sleep apnea, and HAS NOT received any narcotic, sedative or anesthesia administration during this stay. Category 1B: Patient has history of documented sleep apnea, and HAS received any narcotic , sedative or anesthesia administration during this stay Category 2: Patient has SUSPECTED Obstructive Sleep Apnea, and HAS received any narcotic , sedative or anesthesia administration during this stay. Category 3: Patient has SUSPECTED Obstructive Sleep Apnea and HAS NOT received narcotic, sedative or anesthesia administration during this stay. Category 4: Outpatient in Procedural Areas with known sleep apnea or who screen positive for High Risk via the STOP/BANG questionnaire. Exam Exam Vital Signs Vital Signs Date Time Temp Pulse Resp B/P Pulse Ox O2 Delivery O2 Flow Rate FiO2 11/24/16 12:26 36.7 101 18 107/66 98 Room Air 11/24/16 09:26 36.6 104 18 103/73 98 Room Air General Appearance: Alert, Oriented X3, Cooperative, No Acute Distress HEENT/AIRWAY: MP 2 Lungs: Clear to Auscultation, Normal Air Movement Heart: Exam Unremarkable, Regular Rate/Rhythm, No Murmurs/Rubs/Gallops Meds/Labs/Diagnostics Admission Meds Current Medications Sodium Chloride (Normal Saline) 1,000 ml @ 75 mls/hr [id number] IV Last administered on 11/24/16t 12:09; Start 11/24/16 at 11:55 Labs Test 11/22/16 15:50 11/22/16 17:33 11/22/16 18:00 White Blood Count 13.3th/mm3 (3.8-10.1) Red Blood Count 4.54mil/mm3 (3.90-5.20) Hemoglobin 14.1g/dL (12.0-15.6) Hematocrit 41.3% (35.0-46.0) Mean Corpuscular Volume 91.0fL (81-100) Mean Corpuscular Hemoglobin 31.1pg (27.0-35.0) Mean Corpuscular Hemoglobin Concent 34.1% (32.0-37.0) Red Cell Distribution Width 13.7% (12.3-15.4) Platelet Count 212bil/L (150-400) Neutrophils (%) (Auto) 84.0% (40-74) Lymphocytes (%) (Auto) 8.7% (14-46) Monocytes (%) (Auto) 6.4% (4-12) Eosinophils (%) (Auto) 0.2% (0-5) Basophils (%) (Auto) 0.2% (0-3) Sodium Level 137mEq/L (134-144) Potassium Level 4.4mEq/L (3.5-5.2) Chloride Level 97mEq/L (97-108) Carbon Dioxide Level 26mmol/L (18-29) Blood Urea Nitrogen 23mg/dL (8-27) Creatinine 0.77mg/dL (0.57-1.00) Estimat Glomerular Filtration Rate 101mL/min (>59) Glucose Level 112mg/dL (60-99) Calcium Level 9.7mg/dL (8.5-10.1) Magnesium Level 2.0mg/dL (1.6-2.6) Total Bilirubin 0.5mg/dL (0.0-1.2) Aspartate Amino Transf (AST/SGOT) 20U/L (0-50) Alanine Aminotransferase (ALT/SGPT) 13U/L (0-32) Alkaline Phosphatase 68U/L (25-165) Troponin T < 0.010ug/L (0.0-0.011) Total Protein 6.9g/dL (6.4-8.4) Albumin 4.2g/dL (3.4-5.0) Hold Edwards Top Tube Received (Received) Hold Urine Received (Received) Urine Color Yellow (YELLOW) Urine Appearance Hazy (CLEAR,HAZY) Urine pH 5.5 (5.0-8.0) Urine Specific [place] 1.015 (1.003-1.035) Urine Protein Negativemg/dL (NEG,TRACE) Urine Glucose (UA) Negativemg/dL (NEGATIVE) Urine Ketones Tracemg/dL (NEGATIVE) Urine Occult Blood Negative (NEGATIVE) Urine Nitrite Positive (NEGATIVE) Urine Bilirubin Negative (NEGATIVE) Urine Urobilinogen 1.0mg/dL (NORMAL) Urine Leukocyte Esterase Negative (NEGATIVE) Urine RBC 0-2/hpf (0-2) Urine WBC 0-5/hpf (0-5) Urine Epithelial Cells Few/hpf (NONE-MOD) Urine Crystals None seen (NONE SEEN) Urine Bacteria Many/hpf (NONE-FEW) Urine Hyaline Casts None/lpf (NONE) Urine Granular Casts None seen (NONE SEEN) Urine Waxy Casts None seen (NONE SEEN) Urine Red Blood Cell Casts None seen (NONE SEEN) Urine White Blood Cell Casts None seen (NONE SEEN) Urine Mucus None seen (None Seen) Urine Trichomonas None seen (NONE SEEN) Urine Yeast None (NONE SEEN) Urinalysis Comment None Urine Culture Reflexed Indicated Plan Impression Patient chart reviewed, patient interviewed and anesthestic plan with risks, benefits, and alternatives discussed, and informed consent obtained. NPO per Anesth. Guidelines: Yes ASA Physical Status: ASA3 Severe Disease (age, fracture) Anesthetic Plan: GA, SAB Bene/Risks/Altern/Consents: Yes HP Complete Prior to Induction: Yes Abel Leggett MD Nov 24, 2016 17:22
[2016-11-24] MEDS ORDERED: Lactated Ringer's 1,000 ML IV ONE ×2 (17:50→20:19)
--- NOTE | 2016-11-24 18:01 | NUR ---
TRANSFER AND SURGERY Patient transferred from [facility] [place] to [facility] at 0930 this am report received from Alexx Mendez RN. Patient has been NPO all shift in preoperation to surgery to right knee today, consent signed, antibiotics given for UTI (e-coli) and patient denies pain except with movement, no medications given. ECHO done, new DX for A-fib, telemetry A-fib 70-90. Teaching started about A-fib. Patient taken to OR at 1730. Patient has Hx of falls, NS 77, hearing aids, glasses, VSS, and lives alone.
[2016-11-24] MEDS ORDERED: Bupivacaine-MPF 0.25% 30 mL Inj INFILTRATE ONE (18:08)
[2016-11-24 19:06] LABS: APPEARANCE,URINE CLEAR (CLEAR,HAZY); COLOR,URINE YELLOW (YELLOW); OCCULT BLOOD,URINE NEGATIVE (NEGATIVE); UROBILINOGEN,URINE 8 mg/dL (NORMAL)
--- NOTE | 2016-11-24 19:53 | DRSVH ---
[facility] [address] [place] [address] Echocardiogram Report Name: PABLO AMADOR Date : 11/24/2016 Height: 66 in Hospital Exam Location: [facility] Weight: 150 lb Gender: Female BSA: 1.8 m2 : 1925 Age: 89 yrs BP: 103/73 mm Hg Reason For Study: Atrial Fibrillation Ordering Physician: HOSPITALIST [facility] Performed By: Jolynn Candelario Referring Physician: Yair [place] Hospitalist Interpretation Summary Afib with lenient rate control. HR is 95-100 bpm. Normal LV size; borderline concentric LVH. Normal wall motion and LV systolic function. EF is 55-60% Mildly dilated RV with mildly reduced RV function. Mild RA enlargement. No significant valvular abnormalities. Estimated PA systolic pressure is 28-33 mm Hg assuming RA pressure of 5-10 mm Hg. There is no prior study available for comparison. Procedure: A two-dimensional transthoracic echocardiogram with color flow and Doppler was performed. The study quality was technically adequate. The patient was unable to move from the supine position and was sensitive to touch. Most of the acoustic windows were suboptimal, but the best imaging was obtained from the parasternal window. The patient was in atrial fibrillation with controlled ventricular rate during the exam. Left Ventricle: The left ventricle is normal in size. Left ventricular wall thickness is borderline increased. The ejection fraction is estimated to be 55-60%. Diastolic function could not be accurately assessed due to atrial fibrillation. Right Ventricle: The right ventricle is mildly dilated. Right ventricular systolic function is mildly reduced. Atria: The left atrial size is normal. The right atrium is mildly dilated. The interatrial septum is intact with no evidence for an atrial septal defect. Mitral Valve: The mitral valve leaflets appear mildly thickened, but open well. There is mild mitral annular calcification. There is trace mitral regurgitation. Aortic Valve: The aortic valve is trileaflet. The aortic valve opens well. The aortic valve is slightly calcified. No aortic regurgitation is present. Tricuspid Valve: The tricuspid valve leaflets are thin and pliable. There is moderate tricuspid regurgitation. Pulmonic Valve: The pulmonic valve is not well seen, but is grossly normal. There is a trace or physiologic amount of pulmonic regurgitation. Great Vessels: The aortic root is normal size. The ascending aorta could not be visualized. Pericardium/ Pleura There is no pericardial effusion. There is an anterior echo-free space consistent with a fat pad. There is no pleural effusion. MMode/2D Measurements & Calculations LVIDd: 4.1 cm LVIDs: 2.3 cm LA A2 area: 14.7 cm FS: 44.1 % LA A4 area: 13.0 cm IVSd: 1.0 cm LA length (vol): 4.1 cm LVPWd: 0.95 cm LA vol: 39.5 ml LA vol index: 22.3 ml/m IVC diam: 1.5 cm RA long axis: 5.1 cm LVOT diam: 2.1 cm RA area: 18.8 cm RA vol: 58.6 ml RA : 33.1 ml/m2 LV nichole. diameter/BSA (cm/m^2): 2.3 LV sys. diameter/BSA (cm/m^2): 1.3 TAPSE: 1.7 cm Doppler Measurements & Calculations Ao V2 max: 97.9 cm/sec TR max malcolm: 225.3 cm/sec Ao max P.8 mmHg TR max P.4 mmHg Ao mean P.1 mmHg PA V2 max: 61.4 cm/sec LVOT Max Malcolm: 80.0 cm/sec PA mean P.70 mmHg MOSES(I,D): 2.8 cm sev ratio: 0.80 Ao V2 mean: 65.8 cm/sec LV V1 max P.6 mmHg Ao V2 VTI: 18.0 cm LV V1 VTI: 14.4 cm MOSES(V,D): 2.9 cm2 PA V2 mean: 39.3 cm/sec MOSES indexed to BSA (cm^2/m^2): 1.6 PA pr(Accel): 39.6 mmHg Reading Physician:07:52 PM
[2016-11-24] MEDS ORDERED: Sodium Biphos-Phos 133 mL Enema RECTAL PRN (20:30)
[2016-11-24] MEDS ORDERED: Magnesium Hydroxide 10 mL Oral Concentration PO PRN (20:30)
[2016-11-24] MEDS ORDERED: Polyethylene Glycol (PEG) 17 Gm Powder PO PRN (20:30)
[2016-11-24] MEDS ORDERED: diphenhydrAMINE 25 mg Capsule PO PRN (20:30)
[2016-11-24] MEDS ORDERED: Lactated Ringer's 500 ML IV PRN (20:49)
[2016-11-24] MEDS ORDERED: Lactated Ringer's 1,000 ML IV SCH (20:49)
[2016-11-24] MEDS ORDERED: MetoCLOpramide 5 mg/mL 2 mL Inj IVPUSH PRN (20:50)
[2016-11-24] MEDS ORDERED: Phenylephrine 10,000 mCg/mL Inj IVPUSH PRN (20:50)
[2016-11-24] MEDS ORDERED: Ondansetron 2 mg/mL 2 mL Inj IVPUSH PRN (20:50)
[2016-11-24] MEDS ORDERED: fentaNYL-PF 50 mCg/mL 2 mL Inj IVPUSH PRN (20:50)
[2016-11-24] MEDS ORDERED: HYDROmorphone 1 mg/mL Inj IVPUSH PRN (20:50)
[2016-11-24] MEDS ORDERED: EPHEDrine Sulfate 50 mg/mL Inj IVPUSH PRN (20:50)
[2016-11-24] MEDS ORDERED: Dexamethasone 4 mg/mL Inj IVPUSH PRN (20:50)
--- NOTE | 2016-11-24 21:35 | OP ---
[address] [address] OPERATIVE REPORT PATIENT: PABLO AMADOR : 1925 MR#: [id number] ADMIT: 11/22/2016 JOB ID: [id number] DATE OF SURGERY: 11/24/2016 PREOPERATIVE DIAGNOSIS(ES): Right distal femur medial condylar fracture. POSTOPERATIVE DIAGNOSIS(ES): Right distal femur medial condylar fracture. PROCEDURE: Open reduction, internal fixation, right distal femur medial condylar fracture. SURGEON: Larry Khan DO. INFORMATION SYSTEMS SECURITY SPECIALIST: Jani Hernandez PA-C. The assistance of Jani Hernandez PA-C, was necessary for help with manipulation and reduction of the fragment and for closure at the primary conclusion of the case. ANESTHESIA: General. HISTORY: The patient is a pleasant, 89-year-old female who had a syncopal episode at a grocery store and twisted her lower extremity. She complained of right knee pain. She was admitted for syncopal episode without any fractures noted to be identifiable on x-rays. With continued pain, MRI was obtained and Orthopedics was consulted. Upon my read of the MRI and the x-rays, it did demonstrate a medial condylar fracture and a CT was obtained. She complained of only right knee pain. The x-rays and CT were reviewed with the patient as well as her daughter, who is power of commercial real estate attorney. I discussed the risks, benefits, alternatives, indication to proceed with open reduction, internal fixation of the right distal femur fracture. She understood the risks include, but are not limited to, neurovascular injury, tendon injury, infection, failure of fixation, stiffness, persistent pain, all of which may require further intervention. The patient had all questions answered. Consent was signed and placed in the chart. PROCEDURE IN DETAIL: The patient was brought to the operative suite and placed supine on the operating table. Surgical time-out was performed. Everyone in the room was in agreement. After appropriate anesthesia was obtained, a right thigh tourniquet was applied and the right lower extremity was prepped and draped in sterile fashion. A longitudinal incision was made centered at the patella, slightly to the medial border of the patella. Large skin flaps were then raised. The superomedial aspect of the patella was then elevated and a medial parapatellar incision made, leaving a cuff medial to the patella for repair. This was extended alongside the medial aspect of the patellar tendon and then proximally by elevating the vastus medialis off of the distal femur. This allowed for exposure of the medial condyle. Copious irrigation was performed. The fractures fragments were then reduced utilizing a K-wire for a joystick and multiple reduction clamps. Next a K-wire was advanced from the medial-lateral direction, taking caution to stay above Blumensaat's line on the lateral view. The position of the K-wire was confirmed and a direct measurement then made and a 6.5 mm cannulated partially-threaded screw was advanced overlying the K-wire. Excellent compression was then achieved at the articular surface. Two additional 6.5 mm, partially threaded cannulated screws were advanced with the addition of washers due to the patient's poor bone quality. Multiple views of fluoroscopy were utilized to verify anatomic articular reduction, as well as appropriate placement of the three partially-threaded cannulated screws. Attention was then turned toward application of a buttress plate. A seven-hole Synthes 3.5 mm LC-DCP plate was prebent to fit on the medial cortex of the distal femur as a buttress plate. A nonlocking screw was placed just proximal to the fracture line with the plate buttressing the medial condylar fragment. Excellent compression of the plate to the medial cortex of the femur was appreciated. Final fixation was achieved. Utilization of three additional nonlocking screws within the plate. The distal holes were left empty to be utilized mainly for the distal aspect of the plate as a true buttress. Final radiographic projections were obtained demonstrating anatomic reduction and appropriate placement of the hardware. Copious irrigation was performed. A deep drain then placed. The medial parapatellar incision closed first, medial to the patella with #5 Ethibond, and distally with 0-Vicryl, including proximally with the elevation interval of the vastus medialis. 2-0 Vicryl was utilized for the subcutaneous tissues and juana for the skin. The patient was then placed into a bulky soft dressing and into a locked knee immobilizer. ESTIMATED BLOOD LOSS: 500 cc. COMPLICATIONS: None. DISPOSITION: The patient tolerated the procedure well. Anesthesia was reversed, and the patient was transferred to the PACU for recovery. IMPLANTS: A 3.5 mm, seven-hole Synthes LC DCP plate used as a buttress plate and three 6.5 mm, partially-threaded cannulated screws with washers outside of the plate to compress the articular surfaces. POSTOPERATIVE PLAN: The patient will be admitted back to the floor. She is to be strict nonweightbearing onto the right lower extremity and maintained in the immobilizer at all times. The drain will be pulled postoperative day #1, at approximately 24 hours from surgery. She will work with formal physical therapy for gait training and transfers and again needs to be strict nonweightbearing onto the right lower extremity. Presumed hospitalization will be 2-3 days and likely discharged to a [place] [facility] facility. AT Followup in two weeks, we will repeat x-rays and I will unlock the brace allowing her to initiate range of motion. It will be likely eight weeks before placing any weight onto the right lower extremity.
[2016-11-24] MEDS: Senna-Docusate 8.6-50 mg Tablet PO SCH (22:05)
[2016-11-25] VITALS (11 sets, daily range): BP systolic 94–128; BP diastolic 59–90; PULSE 56–115; RESP 14–18; O2SAT 93–100
--- NOTE | 2016-11-25 | NUR ---
Post Op Pt. arrived back on the floor at 2130. Pt alert and oriented x3. Pt. with 2 liters of o2 via nc in place. Chandra catheter patent and intact. Pt's peripheral IV intact and patent. Family at bedside. Pt. denies pain. Will continue to monitor.
[2016-11-25] MEDS: Sodium Chloride LOK Flush 10 mL Syringe IV SCH ×4 (00:30→23:29)
--- NOTE | 2016-11-25 04:51 | NUR ---
Pain Pt. reported pain of a 10/10 about an hour ago. PO Tylenol given. Pt. fell asleep after Tylenol given. Will continue to monitor.
[2016-11-25 05:14] LABS: BASOPHILS % (AUTO) 0 % (0-3); EOSINOPHILS % (AUTO) 0 % (0-5); MONOCYTES % (AUTO) 6.2 % (4-12); Mean Corpuscular Hemoglobin 31.1 pg (27.0-35.0); Mean Corpuscular Volume 94.2 fL (81-100); NEUTROPHILS % (AUTO) 90.1 % (40-74); Platelet Count 168 bil/L (150-400)
[2016-11-25] MEDS: 0.9% Sodium Chloride 1,000 ML IV SCH ×2 (05:50→14:44)
--- NOTE | 2016-11-25 07:37 | PCM.PNMED ---
Subjective Date of Service Nov 25, 2016 Subjective Pt has 500 cc blood loss intraop. Tachycardic, in Afib overnight 77-115. Exam Vital Signs Vital Sign - Last Date Time Temp Pulse Resp B/P Pulse Ox O2 Delivery O2 Flow Rate FiO2 11/25/16 05:29 115 11/25/16 04:30 36.5 18 113/76 96 Room Air 11/25/16 01:00 2.00 Intake and Output 11/24/16 11/24/16 11/25/16 Cumulative From/Thru 15:00 23:00 07:00 11/22/16 13:56 - 11/25/16 05:57 Intake Total 1900 ml 600 ml 3313 ml Output Total 795 ml 265 ml 2785 ml Balance 1105 ml 335 ml 528 ml Intake Oral 0 ml 0 ml 713 ml IV Total 1900 ml 600 ml 2600 ml Output Urine Total 250 ml 200 ml 2175 ml Drainage Total 45 ml 65 ml 110 ml Estimated Blood Loss 500 ml 500 ml # Bowel Movements 0 0 Exam Gen: NAD, AOx4, HEENT: NCAT, PERRLA, EOMI, MMM, sclera anicteric. Neck: Soft, supple, no thyromegaly/JVD/LAD. Resp: CTAB, no R/R/W. CV: Irregular Rate. S1 S2 Abd: Soft, (+) BS, NT/ND, no guarding/rebound/organomegaly. Ext: +PP, No edema. R Knee Brace- +tender/swollen. Surgical site- c/d/i. Skin: warm/dry/intact Neuro/Psych: Cooperative, appr mood/affect. CN II-XII grossly intact. No focal deficits. IVs and Medications Medications Reviewed: Medications were reviewed in detail Lab and Diagnostics Result Diagram: 11/25/16 0442 11/22/16 1550 X-Rays, CTs and MRIs 11/25/16 Echo- Interpretation Summary Afib with lenient rate control. HR is 95-100 bpm. Normal LV size; borderline concentric LVH. Normal wall motion and LV systolic function. EF is 55-60% Mildly dilated RV with mildly reduced RV function. Mild RA enlargement. No significant valvular abnormalities. Estimated PA systolic pressure is 28-33 mm Hg assuming RA pressure of 5-10 mm Hg. There is no prior study available for comparison. Patient Name: PABLO AMADOR MR#: [id number] Location: [facility] Ordering Phys: Bertrand Crum MD Date of Service: 11/22/16 1430 PROCEDURE: X-RAY CHEST ONE VIEW, PORTABLE ([id number]) INDICATIONS: syncope TECHNIQUE: One view of the chest was acquired. COMPARISON: None. FINDINGS: Surgical changes and devices: None. Lungs and pleura: No pleural effusions or pneumothorax. Lungs are clear. Mediastinum: Mediastinal contours appear normal. Heart size is normal. Bones and chest wall: No suspicious bony lesions. Overlying soft tissues appear unremarkable. IMPRESSION: No acute cardiopulmonary disease. Dictated by: Yamilet Kaufman M.D. on 11/22/2016 at 15:11 Approved by: Yamilet Kaufman M.D. on 11/22/2016 at 15:11 Patient Name: PABLO AMADOR MR#: [id number] Location: [facility] Ordering Phys: Bertrand Crum MD Date of Service: 11/22/16 1430 PROCEDURE: X-RAY RIGHT KNEE, THREE VIEWS ([id number]) INDICATIONS: syncope TECHNIQUE: 3 views of the knee were acquired. COMPARISON: None. FINDINGS: Bones: No fractures or dislocations. No suspicious bony lesions. 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 Generalized osteopenia is noted. Soft tissues: Small joint effusion. No suspicious soft tissue calcifications. IMPRESSION: 1. No definitive fractures. 2. Small knee joint effusion. 3. Because of severe degenerative joint disease and generalized osteopenia, subtle fractures could be missed on radiograph. If clinical symptoms persist or clinical suspicion for pathology is high, a repeat examination in 7-10 days, or advanced imaging such as CT or MRI is suggested for further evaluation. Dictated by: Yamilet Kaufman M.D. on 11/22/2016 at 15:09 Approved by: Yamilet Kaufman M.D. on 11/22/2016 at 15:11 Assessment & Plan 89yoF with past medical history of HTN admitted after a syncopal event found to be in atrial fibrillation with RVR found to have Right distal femur medial condylar fracture s/p ORIF 11/24/[address] Larry Khan. #. Syncope, acute, and on admission and stable. -most likely secondary to atrial fibrillation with RVR -patient improved following admission however remains in atrial fibrillation HR 60-100 We'll continue to follow her on telemetry and see if she has any other episodes of syncope or near syncope. We'll also follow her blood pressures and check for orthostasis. CT of the head was unremarkable. No clear episodes of bradycardia or extreme tachycardia. # Right distal femur medial condylar fracture, poa, active. s/p ORIF 11/24/[address] Larry Khan. 500 cc Blood loss. strict nonweightbearing onto the right lower extremity and maintained in the immobilizer at all times. Drain in place w / plan pull POD#1. PT recommending daily PT/OT Services at SNF for discharge F/u Dr. Khan 2 weeks. Will remove brace then. 8 week before can bear weight on RLE. #. Possible New onset atrial fibrillation, presented on admission and active. This appears to mostly mostly rate controlled. -no past history of cardiac diseas history of HTN - Cardiac Monitoring. -11/25/16 Echo- EF 55-60%. Mildly dilated RV with mildly reduced RV function. Mild RA enlargement. No significant valvular abnormalities. - Will decide on anticoagulation at later date as is post op now and bleed risk. -will continue home HTN medications including metoprolol #. Essential hypertension, presented on admission and stable -continue home medications including LORELEI, amlodipine, metoprolol, and furosemide #. DVT prophylaxis. We will start her on subcutaneous heparin after her operation today. This is ordered for start time of late afternoon/early evening. Status- changed to inpatient 11/24/16 given fracture and surgery. PT recommending daily PT/OT Services at SNF for discharge Pain Evaluation: Adequate Pain Control GI Prophylaxis: Not indicated VTE Prophylaxis: Sub-Q Heparin (Unfractionated) VTE Mechanical Devices: Intermittant Pneumatic CD Resuscitation Status: CPR: Attempt Resuscitation Nigel Nixon MD Nov 25, 2016 07:37
[2016-11-25] MEDS ORDERED: Influenza (Adult) Vaccine 0.5 mL Syringe IM ONE (08:30)
[2016-11-25] MEDS: MeTOProlol XL 50 mg ER24 Tablet PO SCH (08:52)
[2016-11-25] MEDS: Senna-Docusate 8.6-50 mg Tablet PO SCH ×2 (08:52→21:00)
[2016-11-25] MEDS: Heparin 5,000 Unit/mL Inj SUBQ SCH ×2 (09:04→21:00)
--- NOTE | 2016-11-25 10:17 | PCM.PNORTH ---
Subjective Date of Service: Nov 25, 2016 Visit Information: Reason for Visit Afib With Rvr, Syncope Surgery/Surgery Date Post-Op Day # Date of Admission: Nov 22, 2016 at 18:18 Hospital Day # Subjective Palpation awake alert sitting up in bed. No complaints of pain at this time. Patient's sister is in attendance at bedside and patient and sister both have no complaints and doing well. Patient is found with her knee brace in place and bandages are in place and not soiled. Wound drain is in place and has been emptied and appears to be drying. 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 Postop General: No Complaints, No Shortness of Breath, No Chest Pain, Good Appetite Pain Management: PO Objective Exam Objective Patient is alert and talkative Mood appropriate Medical and sensation are intact to right lower extremity distally Calf and thigh are soft and nontender We have orthosis is in place and locked at [address] and working Hemovac wound drain in place and working Vital Signs and I/O Vital Sign - Last Date Time Temp Pulse Resp B/P Pulse Ox O2 Delivery O2 Flow Rate FiO2 11/25/16 09:58 106 11/25/16 04:30 36.5 18 113/76 96 Room Air 11/25/16 01:00 2.00 Intake and Output 11/24/16 11/24/16 11/25/16 Cumulative From/Thru 15:00 23:00 07:00 11/22/16 13:56 - 11/25/16 05:57 Intake Total 1900 ml 600 ml 3313 ml Output Total 795 ml 265 ml 2785 ml Balance 1105 ml 335 ml 528 ml Intake Oral 0 ml 0 ml 713 ml IV Total 1900 ml 600 ml 2600 ml Output Urine Total 250 ml 200 ml 2175 ml Drainage Total 45 ml 65 ml 110 ml Estimated Blood Loss 500 ml 500 ml # Bowel Movements 0 0 Lab & Micro Results Laboratory Tests Test 11/24/16 18:43 11/25/16 04:42 Urine Color Yellow (YELLOW) Urine Appearance Clear (CLEAR,HAZY) Urine pH 7.0 (5.0-8.0) Urine Specific [place]pton 1.010 (1.003-1.035) Urine Protein Negativemg/dL (NEG,TRACE) Urine Glucose (UA) Negativemg/dL (NEGATIVE) Urine Ketones Negativemg/dL (NEGATIVE) Urine Occult Blood Negative (NEGATIVE) Urine Nitrite Negative (NEGATIVE) Urine Bilirubin Negative (NEGATIVE) Urine Urobilinogen 8mg/dL (NORMAL) Urine Leukocyte Esterase Small (NEGATIVE) Urine RBC 0-2/hpf (0-2) Urine WBC 11-50/hpf (0-5) Urine Epithelial Cells Few/hpf (NONE-MOD) Urine Crystals None seen (NONE SEEN) Urine Bacteria Few/hpf (NONE-FEW) Urine Hyaline Casts None/lpf (NONE) Urine Granular Casts None seen (NONE SEEN) Urine Waxy Casts None seen (NONE SEEN) Urine Red Blood Cell Casts None seen (NONE SEEN) Urine White Blood Cell Casts None seen (NONE SEEN) Urine Mucus Present (None Seen) Urine Trichomonas None seen (NONE SEEN) Urine Yeast None (NONE SEEN) Urinalysis Comment None Urine Culture Reflexed Indicated White Blood Count 14.4th/mm3 (3.8-10.1) Red Blood Count 3.09mil/mm3 (3.90-5.20) Hemoglobin 9.6g/dL (12.0-15.6) Hematocrit 29.1% (35.0-46.0) Mean Corpuscular Volume 94.2fL (81-100) Mean Corpuscular Hemoglobin 31.1pg (27.0-35.0) Mean Corpuscular Hemoglobin Concent 33.0% (32.0-37.0) Red Cell Distribution Width 13.8% (12.3-15.4) Platelet Count 168bil/L (150-400) Neutrophils (%) (Auto) 90.1% (40-74) Lymphocytes (%) (Auto) 3.4% (14-46) Monocytes (%) (Auto) 6.2% (4-12) Eosinophils (%) (Auto) 0% (0-5) Basophils (%) (Auto) 0% (0-3) Microbiology 11/24/16 Urine Culture - Preliminary, Resulted No growth to date Result Diagram: 11/25/16 0442 11/22/16 0550 General Appearance: Alert, Cooperative, No Acute Distress Extremities: No Compartment Syndrom Noted, Thigh & Calf Soft/Nontender Postop Sensory Motor: Distal Motor Intact, Movement in Toes, Distal Sensation Intact SURGICAL WOUND : Drain Location Body Site: Knee Wound Drainage Type: Hemovac Activity: Activity per PT, Ambulate with PT (continue formal physical therapy for mobility, gait and safety. Strict nonweightbearing at the right lower extremity using frontwheel walker 8 weeks.) Catheters: Urethral 2 Way Chandra Assessment & Plan Plan Postop day #1 from right distal femur fracture ORIF performed on 11/24/[address] Larry Khan. Strict nonweightbearing on the right lower extremity 8 weeks postoperative minimum. Continue formal physical therapy for mobility, gait and safety as able with front wheeled Walker. Continue DVT prophylaxis per hospitalist service as they deem appropriate. Continue by mouth pain medication as needed. Continue rehabilitation type knee brace in place at all times and locked at 0. This may be discontinued for skin inspection and reapplied as needed. Plan dressing change for postop day #2 by orthopedics. Nursing please discontinue Hemovac drain at approximately 5 PM on 11/25/2016. Interoperative dressing may be cut longitudinally down the medial aspect until the drain site is reached. Please remove drain and place a small Tegaderm and pressure dressing as usual. We wrapped dressing with a light Chalo and reapplied the brace. Follow up in 2 weeks [facility] orthopedic clinic with Dr. Larry tong with right to the any x-rays on arrival [facility] by hospitalist service on postop day #3, 11/27/2016 if patient is determined to be appropriate for discharge that time per hospitalist service. VTE Prophylaxis: Sub-Q Heparin (Unfractionated) Resuscitation Status: CPR: Attempt Resuscitation Jani Hernandez PA-C Nov 25, 2016 10:17
--- NOTE | 2016-11-25 12:05 | NUR ---
Evaluation completed. Please go to "Notes" then click on "Assessments and Notes" (bottom left corner of screen). Then select appropriate discipline tab on top of screen.
[2016-11-25] MEDS ORDERED: .Epic Conversion Completed XX PRN (12:55)
[2016-11-25] MEDS: cefTRIAXone Inj 1,000 MG in Dextrose 5% Minibag Plus 50 ML IV SCH (14:13)
--- NOTE | 2016-11-25 18:44 | NUR ---
Pain Medications/Mentation Roxycodone 5mg admin in preparation for a.m. PT session, ineffective, another 5mg post PT session w/ a good effect. Later in shift, around 1700 tramadol admin. Patient has remained A & O x 3, although, "fidgety & slurring her words" per family, RN did not assess behavior. Told family we would medicate pain cautiously & continue to assess for increased confusion. Made family aware that she may also have hospital delirium.
--- NOTE | 2016-11-25 19:05 | NUR ---
Hemovac Drain Per surgical PA, hemovac drain in right knee is to be pulled anywhere from 7-9pm. Upper dressing to be cut & & reinforced w/ another carloz wrap if necessary. NOC RN made aware.
== END 2016-11-26 01:28 | disposition admitted as inpatient to this hospital (09) | DRG 482 ==
LOC: EDBD 13:56 → SED 13:59 → OBSVTOIN 18:18 → MPC 18:18 → OSC 11-24 09:20
PROVIDERS: ADMIT Internal Medicine; ATTEND Internal Medicine
PROC: 0QSB04Z Reposition Right Lower Femur with Internal Fixation Device, Open Approach (ICD-10-PCS; principal; 2016-11-22)
DX: S72.431A Displaced fracture of medial condyle of right femur, initial encounter for closed fracture (principal); I48.91 Unspecified atrial fibrillation